=== PATIENT | female | born 1970 | race African-American/Black ===

== ENCOUNTER 2017-09-06 16:26 | Emergency (ER) | payer OTHER ==
[~2017-09-06] VITALS: Ht 157.5 cm; Wt 75.7 kg
[~2017-09-06 16:26] MED LIST: CYCLOBENZAPRINE10 MG ORAL; TRAMADOL HCL50 MG ORAL
[2017-09-06] MEDS ORDERED: ASPIR 8181 MG ORAL (16:37)
[2017-09-06 16:59] VITALS: BP 125/92
[2017-09-06] MEDS ORDERED: Methocarbamol 500mg tab ORAL ONE (17:15)
[2017-09-06] MEDS ORDERED: Acetaminophen 500mg (ES) tab ORAL ONE (17:15)
--- NOTE | 2017-09-06 17:32 | Emergency Room Report ---
History of Present Illness General Chief Complaint: Lower Back Pain or Injury Source: Patient Present Illness HPI 47-year-old female patient presents ER complaining of back pain and left heel pain. Patient reports until pain has been present for the past 4 months since stepping on a rock. Denies stepping on a nail. Reports pain with ambulation. Reports taking aspirin and Tylenol with mild relief of pain symptoms. Patient also complains of low back pain. Patient reports pain has been present for the past 4 years. Patient reports previous imaging done, has not had any MRI imaging done. Denies bowel or bladder incontinence. Denies history of drug abuse, kidney stones, cancer. Denies abdominal pain. Denies fever, chest pain , shortness of breath. Allergies: Coded Allergies: No Known Allergies (Unverified , 05/17/15) Patient History Past Medical History: see triage record Last Menstrual Period: partial hystrectomy Reviewed Nursing Documentation: PMH: Agreed; PSxH: Agreed Nursing Documentation-PMH Past Medical History: No History, Except For Review of Systems All Other Systems: negative except mentioned in HPI Physical Exam Vital Signs Date Time Temp Pulse Resp B/P (MAP) Pulse Ox O2 Delivery O2 Flow Rate FiO2 09/06/17 16:33 98.3 86 16 125/92 94 Room Air 98.2 Sp02 EP Interpretation: reviewed, normal General Appearance: well appearing, no apparent distress, alert, GCS 15, non- toxic Head: normocephalic, atraumatic ENT: hearing grossly normal, normal pharynx, no angioedema, normal voice, uvula midline, moist mucus membranes Neck: full range of motion Respiratory: lungs clear, normal breath sounds, no rhonchi, no respiratory distress, no accessory muscle use, no wheezing, speaking full sentences Cardiovascular #1: regular rate, rhythm, no edema Musculoskeletal: back normal, digits/nails normal, gait/station normal, normal range of motion, non-tender, other - no bony step-off; left foot: no TTP, negative ankle drawer Neurologic: alert, oriented x3, responsive, motor strength/tone normal, sensory intact, cerebellar normal, normal gait, speech normal, other - SLR positive right side Psychiatric: mood/affect normal Skin: no rash, other - no ecchymosis Medical Decision Making PA Attestation Dr. Feng is my supervising Physician whom patient management has been discussed with. Diagnostic Impression: Primary Impression: Heel pain Additional Impression: Chronic back pain ER Course Pt presents to ED c/o low back pain and heel pain. DDX considered but are not limited to sprain, strain, cauda equina, stenosis, disc herniation, sciatica. Low suspicion for cauda equina, no bowel or bladder incontinence or retention. VITAL SIGNS are WNL, patient is afebrile Ordered pain medication, imaging, labs. ER COURSE: Pain medication provided. PE: patient reports right sided lower lumbar spine pain with lateral bend to left and side twisting to the left. Xray lumbar spine shows no acute fracture per the preliminary reading. Reviewed with Dr. Feng, agrees with reading. RICE method:rest, ice, compression, elevation. Followup with PCP, discuss referral to orthopedic spine and community support specialist or podiatry as needed. Followup with pain management and/or PT. Request referral from PCP. Followup with PCP for further MRI and/or CT imaging as needed. Get orthotic inserts for shoes. Patient observed ambulating without limp. Patient declined post op shoe. Radiation of pain may be related to nerve irritation, take Tylenol for pain, followup with PCP for further treatment and management. DISCHARGE: -Rx provided for Tylenol -Rx provided for Lidocaine patch -Rx provided for Robaxin. SE may cause drowsiness, do not take prior to drinking , driving, or operating heavy machinery. At this time pt. is stable for d/c to home. At this time patient is resting comfortably, in no acute distress, nontoxic appearing, smiling and talking without difficulty. Will provide printed patient care instructions, and any necessary prescriptions. Patient instructed to follow with primary care provider for further treatment and referral as needed. Care plan and follow up instructions have been discussed with the patient prior to discharge. Patient reports understanding and agreement to treatment plan. Patient questions asked and answered. ER precautions given, patient instructed to return to ER immediately for any new or worsening of symptoms. - Please note that this Emergency Department Report was dictated using [employer] dehydr[employer] operator technology software, occasionally this can lead to erroneous entry secondary to interpretation by the dictation equipment. Other X-Ray Diagnostic Results Other X-Ray Diagnostic Results : X-Ray ordered: lumbar spine x-ray # of Views/Limited Vs Complete: 3 View Indication: Pain EP Interpretation: Yes PA Xray: Interpretation reviewed, by supervising MD, and agrees with findings. Interpretation: no dislocation, no soft tissue swelling, no fractures Impression: No acute disease FRANCISCO Scresperanza Text Micah Wong PA-C Last Vital Signs Date Time Temp Pulse Resp B/P (MAP) Pulse Ox O2 Delivery O2 Flow Rate FiO2 09/06/17 17:25 98.2 09/06/17 16:59 16 125/92 94 Room Air 09/06/17 16:33 86 Disposition: HOME, SELF-CARE Condition: Stable Scripts Methocarbamol* (ROBAXIN*) 500 Mg Tablet 500 MG PO TID, #21 TAB 0 Refills Prov: Rudy Wong 09/06/17 Lidocaine (Lidocaine) 1 Each Adh..patch 700 MG TP DAILY for 7 Days, #7 PATCH Prov: Rudy Wong 09/06/17 Acetaminophen* (TYLENOL EXTRA STRENGTH*) 500 Mg Tablet 500 MG ORAL Q8H PRN for Prn Headache/Temp > 101, #30 TAB 0 Refills Prov: Rudy Wong 09/06/17 Referrals: [facility],REFERR[facility] (PCP) Patient Instructions: Back Exercises, Heel Spur, Low Back Sprain With Rehab- [facility], Sciatica, [id number] Additional Instructions: Patient instructed to follow up with primary care provider and discuss further referral to orthopedics. Discuss further imaging at that time. Discuss referral to spine and/or community support specialist as needed. Discuss referral to physical therapy. Perform stretches and ROM exercises, discuss with PCP. Patient instructed on RICE method: rest, ice, compression, elevation. Patient instructed to WBAT. Take medications as directed. Patient questions asked and answered. ER precautions given, patient instructed to return to ER immediately for any new or worsening of symptoms. Rudy Wong September 06, 2017 17:32
[2017-09-06] MEDS ORDERED: ROBAXIN500 MG PO (18:05)
[2017-09-06] MEDS ORDERED: TYLENOL EXTRA500 MG ORAL (18:05)
[2017-09-06] MEDS ORDERED: LIDOCAINE700 M1 TP (18:05)
[2017-09-06] MEDS ORDERED: Ketorolac 30mg Inj IM ONE (18:15)
[2017-09-06 18:40] VITALS: BP 125/92
--- NOTE | 2017-09-07 10:39 | Diagnostic Imaging Report ---
Indication: Lumbar pain Technique: 3 views of the lumbar spine Comparison: 05/17/2015 Findings: There is minimal lumbar scoliotic deformity, possibly an artifact of positioning. Otherwise normal bony alignment. No acute fractures. No dislocations. Vertebral body heights are preserved. The disc spaces are preserved. Sacroiliac joint spaces are preserved. Pedicles are intact. Surrounding soft tissues are unremarkable Impression: No acute process
== END 2017-09-06 18:30 | disposition home or self-care (01) ==
LOC: EMR 17:20
DX: M79.672 Pain in left foot (principal); G89.29 Other chronic pain; M54.9 Dorsalgia, unspecified
CPT/HCPCS: 72020; 96372; 99284; J1885